=== PATIENT | male | born 1955 | race Two or more races ===

== ENCOUNTER 2017-12-01 | Emergency (ER) | payer SELFPAY ==
[~2017-12-01] VITALS: Ht 152.4 cm; Wt 81.6 kg
--- NOTE | 2017-12-01 | NUR ---
FOUND ON THE SIDEWALK SLEEPING AFTER DRIINKING TEQUILA; WANTS TO GO SOMEWHERE TO SLEEP. VSS NO ACUTE DISTRESS AT THIS TIME. PLACED ON SOIL CONSERVATION AIDE. WILL CONTINUE TO MONITOR FOR ANY CHANGES DURING THE SHIFT.
--- NOTE | 2017-12-01 00:01 | NUR ---
ER MD RODGERS AT BEDSIDE FOR EVAL
[2017-12-01] MEDS ORDERED: ALBUTEROL FS 2.5 MG/3 ML VIAL.NEB NEB ONE (01:00)
--- NOTE | 2017-12-01 01:01 | NUR ---
RT AT BEDSIDE FOR BREATHING TX
[2017-12-01 01:09] LABS: CALCIUM, SERUM 7.8 mg/dL (8.5-10.1); POTASSIUM 4.1 mmol/L (3.5-5.1)
[2017-12-01 01:10] LABS: HEMATOCRIT 42 % (39-51); HEMOGLOBIN 13.9 g/dL (13.5-17.5); MEAN CORPUSCULAR HEMOGLOBIN 28 PG (26.0-33.0); MEAN CORPUSCULAR HGB CONC 33 g/dl (31.0-36.0); MEAN CORPUSCULAR VOLUME 84 fL (80-96); PLATELET COUNT (AUTO) 168 /CMM (150-450); RDW COEFFICIENT OF VARIATION 16.1 (11.5-15.0); RED BLOOD CELL COUNT(AUTO) 5.03 MIL/uL (4.5-6.0); WHITE BLOOD COUNT (AUTO) 7.7 K/uL (4.3-11.0)
[2017-12-01 01:15] LABS: ALCOHOL, BLOOD 404 mg/dL (0-0); LIPASE 361 U/L (73-393)
[2017-12-01 01:16] LABS: ALBUMIN 3.4 g/dL (3.4-5.0); BILIRUBIN,DIRECT 0.3 mg/dL (0.0-0.2); BILIRUBIN,TOTAL 0.8 mg/dL (0.2-1.0); TOTAL PROTEIN, SERUM 6.9 g/dL (6.4-8.2)
[2017-12-01] MEDS ORDERED: ALBUTEROL FS 2.5 MG/0.5 ML VIAL.NEB ONE (01:18)
[2017-12-01 01:21] LABS: LYMPHOCYTES % (MANUAL) 11 % (16-48); MONOCYTES % (MANUAL) 3 % (0-11.0); NEUTROPHILS % (MANUAL) 86 (42-76)
--- NOTE | 2017-12-01 04:32 | NUR ---
PATIENT SLEEPING COMFORTABLY IN BED, STABLE CONDITION
--- NOTE | 2017-12-01 05:09 | NUR ---
PATIENT ABLE TO AMBULATE WITH STEADY GAIT. PT IS ALERT AND ORIENTED ABLE TO MAKE NEEDS KNOWN. MD RODGERS WILL DO EVAL SOON.
[2017-12-01 05:42] VITALS: BP 136/79
== END 2017-12-01 05:42 | disposition home or self-care (01) ==
LOC: ER 00:02
DX: F10.129 Alcohol abuse with intoxication, unspecified (principal); Y90.8 Blood alcohol level of 240 mg/100 ml or more
CPT/HCPCS: 36415; 71045; 80048; 80076; 83690; 85025; 94640; 99285; A4606; G0480; Z7610